=== PATIENT | female | born 2000 | race Caucasian/White ===

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

== ENCOUNTER 2022-12-29 11:38 | Outpatient (CLI) | payer OTHER ==
[2022-12-29 12:30] VITALS: BP 125/61; PULSE 77; RESP 16; TEMP 97.5
--- NOTE | 2023-01-13 10:21 | P.MSEPDOC ---
Presenting Problems - Arrival Data Date of Arrival on Unit: 12/29/22 Time of Arrival on Unit: 11:35 Mode of Transport: Ambulatory - Complaint OB-Reason for Admission/Chief Complaint: Acute Nausea/Vomiting, Dizziness Comment: pt states that she was dizzy and had n+v as a result. Medical History - Information : 3 Para: 2 Term: 2 : 0 Abortions: Spontaneous or Elective: 0 Number of Living Children: 2 - Gestational Age Gestational Age by RAJAN (wks/days): 24 Weeks and 1 Days Review of Systems - Review of Systems Constitutional: No problems Breast: No problems ENT: No problems Cardiovascular: No problems Respiratory: No problems Gastrointestinal: No problems Genitourinary: No problems Musculoskeletal: No problems Neurological: No problems Skin: No problems Vital Signs - Temperature Temperature: 97.5 F Temperature Source: Oral - Pulse Pulse Oximetery Pulse Rate: 77 Pulse Assessment Method: Pulse Oximetry - Respirations Respiratory Rate: 16 Oxygen Delivery Method: Room Air O2 Sat by Pulse Oximetry: 100 - Blood Pressure Right Arm Blood Pressure: 125/61 Blood Pressure Mean: 82 Blood Pressure Source: Automatic Cuff Medical Screen Scoring - Assessment - Baby A Baseline FHR: 150 Physician Notification - Physician Notified Physician Notified Date: 12/29/22 Physician Notified Time: 12:05 Physician: Eboni Wong Order Received: Yes (d/c home) Maternal Triage Index - Maternal Triage Index Presenting for scheduled procedure w/no complaint: No - Stat/Priority 1 Stat Priority 1: No - Urgent/Priority 2 Urgent Priority 2: No - Prompt/Priority 3 Prompt Priority 3: No - Non-Urgent/Priority 4 Non-Urgent Priority 4: Yes Criteria Met for Priority 4: pt complaints of dizziness and n+v Disposition - Disposition OB Disposition: Discharge to home Discharge Date: 12/29/22 Discharge Time: 12:16 I agree with the RN Medical Screening Exam: Yes Case reviewed; plan agreed upon as documented in EMR&OBIX.: Yes Diagnosis: DIZZINESS AND GIDDINESS
== END 2022-12-29 12:16 ==
LOC: FBPOP 11:38
PROVIDERS: ATTEND Obstetrics & Gynecology
DX: O21.9 Vomiting of pregnancy, unspecified (principal); Z3A.24 24 weeks gestation of pregnancy
CPT/HCPCS: 99213

== ENCOUNTER 2023-03-04 14:49 | Outpatient (CLI) | payer OTHER ==
[2023-03-04 16:00] LABS: Appearance,Urine Clear (Clear); Bilirubin,Urine Negative (Negative); Blood,Urine Negative (Negative); Color,Urine Yellow; Glucose,Urine (UA) Negative (Negative); Ketones,Urine Negative (Negative); Leukocyte Esterase,Urine Large (Negative); Mucus,Urine Rare /hpf; Nitrite,Urine Negative (Negative); PH, Urine 7.5 (5.0-8.0); Protein,Urine Trace (Negative); RBC,Urine 4 /hpf (0-5); Specific Gravity,Urine 1.014 (1.001-1.035); Squamous Epithelial Cell,Urine 6 /hpf (0-4); Urobilinogen,Urine <2.0 mg/dL (<2.0); WBC,Urine 11 /hpf (0-5)
[2023-03-04 18:03] VITALS: BP 115/56; PULSE 97; RESP 16; TEMP 98
--- NOTE | 2023-03-10 12:04 | P.MSEPDOC ---
Presenting Problems - Arrival Data Date of Arrival on Unit: 03/04/23 Time of Arrival on Unit: 14:49 Mode of Transport: Ambulatory - Complaint OB-Reason for Admission/Chief Complaint: Possible Onset of Labor Comment: Patient presents with increased vaginal pressure since yesterday evening, Patient denies contractions, leaking of fluid or intercourse in the last 24 hours. States that she does notice and increase in urinary frequency with the pressure pain. Medical History - Information : 3 Para: 2 Term: 2 : 0 Abortions: Spontaneous or Elective: 0 Number of Living Children: 2 - Gestational Age Gestational Age by RAJAN (wks/days): 33 Weeks and 3 Days Review of Systems - Review of Systems Constitutional: No problems Breast: No problems ENT: No problems Cardiovascular: No problems Respiratory: No problems Gastrointestinal: No problems Genitourinary: No problems Musculoskeletal: No problems Neurological: No problems Skin: No problems Vital Signs - Temperature Temperature: 98.0 F Temperature Source: Temporal Artery Scan - Pulse Pulse Oximetery Pulse Rate: 97 Pulse Assessment Method: Pulse Oximetry - Respirations Respiratory Rate: 16 Oxygen Delivery Method: Room Air - Blood Pressure Sitting Blood Pressure: 115/56 Blood Pressure Mean: 75 Blood Pressure Source: Automatic Cuff Medical Screen Scoring - Cervical Exam Dilation (cm): 1 Station: -2 Membranes: Intact - Uterine Contractions Intensity: Mild Resting: Soft to palpation - Assessment - Baby A Baseline FHR: 140 Heart Rate - NICHD Category: Category I (Normal) NST: Reactive Physician Notification - Physician Notified Physician Notified Date: 03/04/23 Physician Notified Time: 15:11 Physician: Eboni Wong New Order Received: Yes - Notification Comment Comment: Orders given to give patient juice to drink, Collect an FFN and then check cervix and send a UA. 1738 FFN results negative, reported UA results to physician. Physician orders urine culture and discharges patient home with instructions. Patient to keep regularly scheduled appt. Maternal Triage Index - Urgent/Priority 2 Urgent Priority 2: Yes Provider Notified: Eboni Wong Provider Notified Time: 15:11 Criteria Met for Priority 2: 33 3/7 Patient presents with increased vaginal pressure and has a history of labor. Disposition - Disposition OB Disposition: Discharge to home, Written follow up instructions reviewed Discharge Date: 03/04/23 Discharge Time: 17:55 I agree with the RN Medical Screening Exam: Yes Case reviewed; plan agreed upon as documented in EMR&OBIX.: Yes Diagnosis: FALSE LABOR BEFORE 37 COMPLETED WEEKS OF GEST, THIRD TRI
== END 2023-03-04 17:55 | disposition home or self-care (01) ==
LOC: FBPOP 14:49
PROVIDERS: ATTEND Obstetrics & Gynecology
DX: O47.03 False labor before 37 completed weeks of gestation, third trimester (principal); Z3A.33 33 weeks gestation of pregnancy
CPT/HCPCS: 59025; 82731; 81001; 87086; G0463; 99213

== ENCOUNTER 2023-03-10 23:53 | Outpatient (CLI) | payer OTHER ==
[2023-03-11 00:38] VITALS: BP 124/59; PULSE 92; RESP 14; TEMP 97.5
--- NOTE | 2023-03-11 09:36 | P.MSEPDOC ---
Presenting Problems - Arrival Data Date of Arrival on Unit: 03/10/23 Time of Arrival on Unit: 23:53 Mode of Transport: Ambulatory - Complaint OB-Reason for Admission/Chief Complaint: Possible Onset of Labor Comment: UC's q7-10min x1 hour Medical History - Information : 3 Para: 2 Term: 1 : 1 Abortions: Spontaneous or Elective: 0 Number of Living Children: 2 - Gestational Age Gestational Age by RAJAN (wks/days): 34 Weeks and 3 Days - History Complications: Prior Review of Systems - Review of Systems Constitutional: No problems Breast: No problems ENT: No problems Cardiovascular: No problems Respiratory: No problems Gastrointestinal: No problems Genitourinary: No problems Musculoskeletal: No problems Neurological: No problems Skin: No problems Vital Signs - Temperature Temperature: 97.5 F Temperature Source: Temporal Artery Scan - Pulse Right Pulse Oximetery Pulse Rate: 92 Pulse Assessment Method: Pulse Oximetry - Respirations Respiratory Rate: 14 Oxygen Delivery Method: Room Air O2 Sat by Pulse Oximetry: 97 - Blood Pressure Right Arm Blood Pressure: 124/59 Blood Pressure Mean: 80 Blood Pressure Source: Automatic Cuff Medical Screen Scoring - Cervical Exam Dilation (cm): 3 Effacement (%): 60 Station: -2 Membranes: Intact - Uterine Contractions Frequency From (mins): 3 Frequency To (mins): 8 Duration From (seconds): 50 Duration To (seconds): 90 Intensity: Mild Resting: Soft to palpation - Assessment - Baby A Baseline FHR: 140 Heart Rate - NICHD Category: Category I (Normal) NST: Reactive Physician Notification - Physician Notified Physician Notified Date: 03/11/23 Physician Notified Time: 00:25 Physician: Eboni Wong New Order Received: Yes - Notification Comment Comment: Dr. Wong notified of pt's arrival to triage with c/o UC's q7-10min for about. an hour. RN reported on maternal and status including pt hx of deliveries,. comfort level and UC pattern. Orders to orally hydrate pt and monitor for 1 hour, if pt. is feeling better at that time she can D/C home, if not then RN to recheck SVE, start an. IV and contact physician. POC discussed with pt, who verbalized agreement. Maternal Triage Index - Maternal Triage Index Presenting for scheduled procedure w/no complaint: No - Stat/Priority 1 Stat Priority 1: No - Urgent/Priority 2 Urgent Priority 2: No - Prompt/Priority 3 Prompt Priority 3: Yes Criteria Met for Priority 3: Pt is a with RAJAN [birth year] here at 34.3 weeks of gestation with c/o. abdominal tightening/cramping q7-10min for about the last hour, she rates the pain 6/10. on a 0-10 scale during the UC. Pt denies complications with the , but does. report 2 previous births at 35 and 37 weeks of gestation. POC discussed with pt, who. verbalized understanding and agreement. - Non-Urgent/Priority 4 Non-Urgent Priority 4: No - Scheduled/Requesting Priority 5 Scheduled/Requesting Priority 5: No Disposition - Disposition OB Disposition: Triage Discharge Date: 03/11/23 Discharge Time: 01:30 I agree with the RN Medical Screening Exam: Yes Case reviewed; plan agreed upon as documented in EMR&OBIX.: Yes Diagnosis: FALSE LABOR BEFORE 37 COMPLETED WEEKS OF GEST, THIRD TRI
== END 2023-03-11 01:30 | disposition home or self-care (01) ==
LOC: FBPOP 23:53
PROVIDERS: ATTEND Obstetrics & Gynecology
DX: O47.03 False labor before 37 completed weeks of gestation, third trimester (principal); Z3A.34 34 weeks gestation of pregnancy
CPT/HCPCS: 59025; G0463; 99213

== ENCOUNTER 2023-03-16 16:15 | Outpatient (CLI) | payer OTHER ==
[2023-03-16 18:17] VITALS: BP 114/64; PULSE 91; RESP 16; TEMP 97.9
--- NOTE | 2023-03-17 08:39 | P.MSEPDOC ---
Presenting Problems - Arrival Data Date of Arrival on Unit: 03/16/23 Time of Arrival on Unit: 16:15 Mode of Transport: Ambulatory - Complaint OB-Reason for Admission/Chief Complaint: Possible Onset of Labor, Rule Out SROM Comment: cx x3hrs, possible ROM Medical History - Information : 3 Para: 2 Term: 1 : 1 Abortions: Spontaneous or Elective: 0 Number of Living Children: 2 - Gestational Age Gestational Age by RAJAN (wks/days): 35 Weeks and 1 Days - History Complications: Prior Review of Systems - Review of Systems Constitutional: No problems Breast: No problems ENT: No problems Cardiovascular: No problems Respiratory: No problems Gastrointestinal: No problems Genitourinary: No problems Musculoskeletal: No problems Neurological: No problems Skin: No problems Vital Signs - Temperature Temperature: 97.9 F Temperature Source: Temporal Artery Scan - Pulse Pulse Oximetery Pulse Rate: 91 Pulse Assessment Method: Pulse Oximetry - Respirations Respiratory Rate: 16 Oxygen Delivery Method: Room Air O2 Sat by Pulse Oximetry: 97 - Blood Pressure Right Arm Blood Pressure: 114/64 Blood Pressure Mean: 80 Blood Pressure Source: Automatic Cuff Medical Screen Scoring - Cervical Exam Dilation (cm): 4.5 Effacement (%): 70 Station: -2 Membranes: Intact - Uterine Contractions Frequency From (mins): 2 Frequency To (mins): 6 Duration From (seconds): 40 Duration To (seconds): 70 Intensity: Mild Resting: Soft to palpation - Assessment - Baby A Baseline FHR: 140 Heart Rate - NICHD Category: Category I (Normal) NST: Reactive Physician Notification - Physician Notified Physician Notified Date: 03/16/23 Physician Notified Time: 16:30 Physician: Akash Sosa New Order Received: Yes - Notification Comment Comment: Dr. Sosa on unit, tracing reviewed, report given on contractions x3hrs,. possible ROM at 1500, so far amnisure is negative and SVE is 4/70/-2. Orders to watch. for 1 hour and recheck cervix, if the same and amnisure remains negative, pt can be. discharged home. Maternal Triage Index - Maternal Triage Index Presenting for scheduled procedure w/no complaint: No - Stat/Priority 1 Stat Priority 1: No - Urgent/Priority 2 Urgent Priority 2: No - Prompt/Priority 3 Prompt Priority 3: Yes Criteria Met for Priority 3: cx q3-5mins x3hrs, possible ROM Disposition - Disposition OB Disposition: Discharge to home Discharge Date: 03/16/23 Discharge Time: 17:42 I agree with the RN Medical Screening Exam: Yes Case reviewed; plan agreed upon as documented in EMR&OBIX.: Yes Diagnosis: FALSE LABOR BEFORE 37 COMPLETED WEEKS OF GEST, THIRD TRI
== END 2023-03-16 17:42 | disposition home or self-care (01) ==
LOC: FBPOP 16:15
PROVIDERS: ATTEND Obstetrics & Gynecology
DX: O47.03 False labor before 37 completed weeks of gestation, third trimester (principal); Z3A.35 35 weeks gestation of pregnancy
CPT/HCPCS: 59025; 84112; G0463; 99213

== ENCOUNTER 2023-12-30 23:16 | Emergency (ER) | payer OTHER ==
[2023-12-30 23:41] VITALS: BP 111/60; PULSE 116; RESP 18; TEMP 99.1
== END 2023-12-30 23:35 | disposition left against medical advice (07) ==
LOC: EC 23:16
DX: Z53.21 Procedure and treatment not carried out due to patient leaving prior to being seen by health care provider (principal); R11.2 Nausea with vomiting, unspecified
CPT/HCPCS: 87636; 99499

== ENCOUNTER 2024-05-18 19:34 | Emergency (ER) | payer OTHER ==
--- NOTE | 2024-05-18 20:07 | ED ---
Female Urogenital HPI - General Stated complaint: 9 Weeks preg,Vag bleeding Time Seen by Provider: 05/18/24 19:49 Source: patient, RN notes reviewed - History of Present Illness Initial comments: 23-year-old female G4, presents emergency department approximately 9 weeks gestation with lower abdominal cramping and vaginal spotting that began at 1800 this evening. Denies passage of clots. Has not had a ultrasound for this . States that last menstrual cycle was 03/23/24. Denies fevers, chills, urinary or bowel habit changes. Patient has attempted to make appoint with OB and was informed she will be contacted this week to schedule an appointment. - Related Data Previous Rx's Medication Instructions Recorded Ibuprofen [Motrin] 600 mg PO Q6HR PRN #30 tab 03/31/23 Allergies Allergy/AdvReac Type Severity Reaction Status Date / Time No Known Allergies Allergy Verified 05/18/24 20:06 Review of Systems ROS Statement: Those systems with pertinent positive or pertinent negative responses have been documented in the HPI. ROS Other: All systems not noted in ROS Statement are negative. Past Medical History Past Medical History: No Reported History Additional Past Medical History / Comment(s): 2 previous vaginal deliveries. History of Any Multi-Drug Resistant Organisms: None Reported Past Surgical History: No Surgical Hx Reported Past Anesthesia/Blood Transfusion Reactions: No Reported Reaction Past Psychological History: Anxiety, Bipolar, Depression Smoking Status: Former smoker Past Alcohol Use History: None Reported Past Drug Use History: Marijuana - Past Family History Mother Family Medical History: Cancer, Myocardial Infarction ([place]), Rheumatoid Arthritis ([place]), Thyroid Disorder Additional Family Medical History / Comment(s): cervical cancer Father Family Medical History: Myocardial Infarction ([place]) General Exam - General Exam Comments Initial Comments: Visual Physical Exam Vital signs reviewed General: Well-appearing, nontoxic, no acute distress. Head: Normocephalic, atraumatic Eyes: PERRLA, EOMI ENT: Airway patent Chest: Nonlabored breathing Skin: No visual rash, normal skin tone Neuro: Alert and oriented 3 Musculoskeletal: No gross abnormalities General appearance: alert, in no apparent distress Head exam: Present: atraumatic, normocephalic, normal inspection Respiratory exam: Present: normal lung sounds bilaterally. Absent: respiratory distress, wheezes, rales, rhonchi, stridor Cardiovascular Exam: Present: regular rate, normal rhythm, normal heart sounds. Absent: systolic murmur, diastolic murmur, rubs, gallop, clicks GI/Abdominal exam: Present: soft, tenderness (suprapubic), normal bowel sounds. Absent: distended, guarding, rebound, rigid Extremities exam: Present: normal inspection, full ROM, normal capillary refill. Absent: tenderness, pedal edema, joint swelling, calf tenderness Back exam: Present: normal inspection Skin exam: Present: warm, dry, intact, normal color. Absent: rash Course Vital Signs 05/18/24 20:06 Temperature 98.7 F Pulse Rate 74 Respiratory 16 Rate Blood Pressure 109/65 O2 Sat by Pulse 98 Oximetry Medical Decision Making - Medical Decision Making Was pt. sent in by a medical professional or institution ([facility], [employer], urgent care, hospital, or residential...) When possible be specific @ -No Did you speak to anyone other than the patient for history (EMS, parent, family, police, friend...)? What history was obtained from this source @ -No Did you review nursing and triage notes (agree or disagree)? Why? @ -I reviewed and agree with nursing and triage notes Were old charts reviewed (outside hosp., previous admission, EMS record, old EKG, old radiological studies, urgent care reports/EKG's, residential records)? Report findings @ -No old charts were reviewed Differential Diagnosis (chest pain, altered mental status, abdominal pain women, abdominal pain men, vaginal bleeding, weakness, fever, dyspnea, syncope, headache, dizziness, GI bleed, back pain, seizure, CVA, palpatations, mental health, musculoskeletal)? @ -Differential Vaginal Bleeding: Spontaneous , threatened , molar , ectopic , bloody show, incompetent cervix, abruptioplacenta, placenta previa, uterine rupture, dysfunctional uterine bleeding, hemorrhage, uterine fibroids, this is not meant to be an all-inclusive list. EKG interpreted by me (3pts min.). @ -None X-rays interpreted by me (1pt min.). @ -None done CT interpreted by me (1pt min.). @ -None done U/S interpreted by me (1pt. min.). @ -Transabdominal ultrasound reveals a single live intrauterine with a calculated age of 8 weeks 0 days, heart rate 155. What testing was considered but not performed or refused? (CT, X-rays, U/S, labs)? Why? @ -None What meds were considered but not given or refused? Why? @ -She was offered pain medication but she declined at this time. Did you discuss the management of the patient with other professionals (professionals i.e. , PA, [employer] SCI[employer] TEACHER, lab, RT, psych nurse, social media analyst, plisse machine operator helper, teacher, custom protection officer, business case analyst)? Give summary @ -No Was smoking cessation discussed for >3mins.? @ -No Was critical care preformed (if so, how long)? @ -No Were there social determinants of health that impacted care today? How? (Homelessness, low income, unemployed, alcoholism, drug addiction, transportation, low edu. Level, literacy, decrease access to med. care, retirement, rehab)? @ -No Was there de-escalation of care discussed even if they declined (Discuss DNR or withdrawal of care, Hospice)? DNR status @ -No What co-morbidities impacted this encounter? (DM, HTN, Smoking, COPD, CAD, Cancer, CVA, ARF, Chemo, Hep., AIDS, mental health diagnosis, sleep apnea, morbid obesity)? @ -None Was patient admitted / discharged? Hospital course, mention meds given and route, prescriptions, significant lab abnormalities, going to OR and other pertinent info. @ -Discharge. 23-year-old female with vaginal bleeding during . Patient's vitals are stable upon arrival she is no signs of acute distress. Patient has mild suprapubic tenderness to palpation. With concern for potential ectopic or threatened with no recorded ultrasound patient is sent for ultrasound and labs ordered. CBC reveals mild leukocytosis of 12, CMP hyponatremia of 134, hCG of [id number], analysis negative for signs of infection, contamination including squamous epithelial cells. Ultrasound reveals a single live intrauterine with a gestational age of 8 weeks 0 days. Recommend that patient follows up with her OB as instructed for further evaluation. All questions answered at bedside and strict return parameters discussed with the patient she is verbalized understanding. Case discussed with Dr. Moncada. Undiagnosed new problem with uncertain prognosis? @ -No Drug Therapy requiring intensive monitoring for toxicity (Heparin, Nitro, Insulin, Cardizem)? @ -No Were any procedures done? @ -No Diagnosis/symptom? @ -vaginal bleeding during /threatened , intrauterine Acute, or Chronic, or Acute on Chronic? @ -Acute Uncomplicated (without systemic symptoms) or Complicated (systemic symptoms)? @ -Uncomplicated Side effects of treatment? @ -No Exacerbation, Progression, or Severe Exacerbation? @ -No Poses a threat to life or bodily function? How? (Chest pain, [place], [place], pneumonia, PE, COPD, DKA, ARF, appy, cholecystitis, CVA, Diverticulitis, Homicidal, Suicidal, threat to staff... and all critical care pts) @ -No - Lab Data Result diagrams: 05/18/24 21:06 05/18/24 21:06 Lab Results 05/18/24 05/18/24 05/18/24 Range/Units 20:52 21:06 21:06 WBC 12.0 H (3.8-10.6) k/uL RBC 4.65 (3.80-5.40) m/uL Hgb 13.9 (11.4-16.0) gm/dL Hct 41.1 (34.0-46.0) % MCV 88.2 (80.0-100.0) fL MCH 29.9 (25.0-35.0) pg MCHC 33.9 (31.0-37.0) g/dL RDW 13.0 (11.5-15.5) % Plt Count 265 (150-450) k/uL MPV 8.1 Neutrophils % 77 % Lymphocytes % 19 % Monocytes % 2 % Eosinophils % 1 % Basophils % 0 % Neutrophils # 9.2 H (1.3-7.7) k/uL Lymphocytes # 2.2 (1.0-4.8) k/uL Monocytes # 0.3 (0-1.0) k/uL Eosinophils # 0.1 (0-0.7) k/uL Basophils # 0.0 (0-0.2) k/uL Sodium (137-145) mmol/L Potassium (3.5-5.1) mmol/L Chloride (98-107) mmol/L Carbon Dioxide (22-30) mmol/L Anion Gap mmol/L BUN (7-17) mg/dL Creatinine (0.52-1.04) mg/dL Est GFR (CKD-EPI)AfAm (>60 ml/min/1.73 sqM) Est GFR (CKD-EPI)NonAf (>60 ml/min/1.73 sqM) Glucose (74-99) mg/dL Calcium (8.4-10.2) mg/dL Total Bilirubin (0.2-1.3) mg/dL AST (14-36) U/L ALT (4-34) U/L Alkaline Phosphatase (38-126) U/L Total Protein (6.3-8.2) g/dL Albumin (3.5-5.0) g/dL HCG, Quant mIU/mL Urine Color Yellow Urine Appearance Cloudy H (Clear) Urine pH 5.5 (5.0-8.0) Ur Specific [place] 1.034 (1.001-1.035) Urine Protein Trace H (Negative) Urine Glucose (UA) Negative (Negative) Urine Ketones Trace H (Negative) Urine Blood Negative (Negative) Urine Nitrite Negative (Negative) Urine Bilirubin Negative (Negative) Urine Urobilinogen <2.0 (<2.0) mg/dL Ur Leukocyte Esterase Moderate H (Negative) Urine RBC 2 (0-5) /hpf Urine WBC 7 H (0-5) /hpf Ur Squamous Epith Cells 5 H (0-4) /hpf Calcium Oxalate Crystal Many H (None) /hpf Urine Mucus Many H (None) /hpf Blood Type O Positive Blood Type Recheck O Pos Bld Type Recheck Status No 05/18/24 Range/Units 21:06 WBC (3.8-10.6) k/uL RBC (3.80-5.40) m/uL Hgb (11.4-16.0) gm/dL Hct (34.0-46.0) % MCV (80.0-100.0) fL MCH (25.0-35.0) pg MCHC (31.0-37.0) g/dL RDW (11.5-15.5) % Plt Count (150-450) k/uL MPV Neutrophils % % Lymphocytes % % Monocytes % % Eosinophils % % Basophils % % Neutrophils # (1.3-7.7) k/uL Lymphocytes # (1.0-4.8) k/uL Monocytes # (0-1.0) k/uL Eosinophils # (0-0.7) k/uL Basophils # (0-0.2) k/uL Sodium 134 L (137-145) mmol/L Potassium 4.0 (3.5-5.1) mmol/L Chloride 104 (98-107) mmol/L Carbon Dioxide 22 (22-30) mmol/L Anion Gap 8 mmol/L BUN 9 (7-17) mg/dL Creatinine 0.79 (0.52-1.04) mg/dL Est GFR (CKD-EPI)AfAm >90 (>60 ml/min/1.73 sqM) Est GFR (CKD-EPI)NonAf >90 (>60 ml/min/1.73 sqM) Glucose 121 H (74-99) mg/dL Calcium 9.4 (8.4-10.2) mg/dL Total Bilirubin 1.1 (0.2-1.3) mg/dL AST 20 (14-36) U/L ALT 10 (4-34) U/L Alkaline Phosphatase 52 (38-126) U/L Total Protein 6.9 (6.3-8.2) g/dL Albumin 4.3 (3.5-5.0) g/dL HCG, Quant 793408.0 mIU/mL Urine Color Urine Appearance (Clear) Urine pH (5.0-8.0) Ur Specific [place] (1.001-1.035) Urine Protein (Negative) Urine Glucose (UA) (Negative) Urine Ketones (Negative) Urine Blood (Negative) Urine Nitrite (Negative) Urine Bilirubin (Negative) Urine Urobilinogen (<2.0) mg/dL Ur Leukocyte Esterase (Negative) Urine RBC (0-5) /hpf Urine WBC (0-5) /hpf Ur Squamous Epith Cells (0-4) /hpf Calcium Oxalate Crystal (None) /hpf Urine Mucus (None) /hpf Blood Type Blood Type Recheck Bld Type Recheck Status Disposition Clinical Impression: Bleeding in early , Intrauterine Disposition: HOME SELF-CARE Condition: Good Instructions (If sedation given, give patient instructions): Threatened Misca rriage (ED) Additional Instructions: Return to the emergency department for any new or worsening symptoms. Recommend that you follow-up with OB for further evaluation. Is patient prescribed a controlled substance at d/c from ED?: No Referrals: None,Stated [Primary Care Provider] - 1-2 days Time of Disposition: 23:04
[2024-05-18 20:08] VITALS: RESP 16
--- NOTE | 2024-05-18 21:03 | US ---
EXAMINATION TYPE: Transabdominal DATE OF EXAM: 05/18/2024 8:39 PM COMPARISON: NONE CLINICAL INDICATION: Female, 23 years old with history of est. 9 weeks, cramping, spotting; Patient u nsure of exact dates. Cramping and spotting EXAM PERFORMED: Transabdominal (TA) EXAM MEASUREMENTS: GESTATIONAL AGE / DATING Physician Established: Not yet established Dates by LMP: (7 weeks/2 days) EDC: 01/02/2025 Dates by First Scan: No previous this is first scan Dates by Current Scan for: (8 weeks/0 days) EDC: 12/29/2023 MATERNAL ANATOMY Uterus: 9.7 x 5.9 x 6.4cm. WNL as best seen Right Ovary: 2.1 x 2.2 x 2.1cm. WNL as best seen Left Ovary: 1.9 x 1.5 x 1.3cm. WNL as best seen Post CDS / Adnexa: WNL Presence of free fluid: No Presence of corpus luteal cyst: Not visualized Presence of subchorionic bleed: No GESTATION / SURVEY CRL: 1.638 weeks/0 days) Yolk Sac (normal less than 6mm): 3mm Heart Rate: 155 bpm Rhythm: Normal IUP: Viable IUP Date of LMP: 03/28/2024 Beta HcG (if available): Not available at this time IMPRESSION: 1. Single live intrauterine with calculated ultrasound age of 8 weeks 0 days by crown rump length with an estimated date of delivery of 12/29/2023
[2024-05-18 21:13] LABS: Basophils % (A) 0 %; Eosinophils # (A) 0.1 k/uL (0-0.7); Eosinophils % (A) 1 %; HCT 41.1 % (34.0-46.0); HGB 13.9 gm/dL (11.4-16.0); Lymphocytes # (A) 2.2 k/uL (1.0-4.8); Lymphocytes % (A) 19 %; MCH 29.9 pg (25.0-35.0); MCHC 33.9 g/dL (31.0-37.0); MCV 88.2 fL (80.0-100.0); Mean Platelet Volume 8.1; Monocytes # (A) 0.3 k/uL (0-1.0); Monocytes % (A) 2 %; Neutrophils # (A) 9.2 k/uL (1.3-7.7); Neutrophils % (A) 77 %; Platelet Count 265 k/uL (150-450); RBC 4.65 m/uL (3.80-5.40)
[2024-05-18 21:24] LABS: Appearance,Urine Cloudy (Clear); Bilirubin,Urine Negative (Negative); Blood,Urine Negative (Negative); Calcium Oxalate Crystals,Urine Many /hpf; Color,Urine Yellow; Glucose,Urine (UA) Negative (Negative); Ketones,Urine Trace (Negative); Leukocyte Esterase,Urine Moderate (Negative); Mucus,Urine Many /hpf; Nitrite,Urine Negative (Negative); PH, Urine 5.5 (5.0-8.0); Protein,Urine Trace (Negative); RBC,Urine 2 /hpf (0-5); Specific Gravity,Urine 1.034 (1.001-1.035); Squamous Epithelial Cell,Urine 5 /hpf (0-4); Urobilinogen,Urine <2.0 mg/dL (<2.0); WBC,Urine 7 /hpf (0-5)
[2024-05-18 21:31] LABS: ALT 10 U/L (4-34); AST 20 U/L (14-36); African American GFR (CKD) >90 (>60 ml/min/1.73 sqM); Albumin 4.3 g/dL (3.5-5.0); Alkaline Phosphatase 52 U/L (38-126); Anion Gap 8 mmol/L; Blood Urea Nitrogen 9 mg/dL (7-17); Calcium 9.4 mg/dL (8.4-10.2); Carbon Dioxide 22 mmol/L (22-30); Chloride 104 mmol/L (98-107); Glucose 121 mg/dL (74-99); Non-African American GFR(CKD) >90 (>60 ml/min/1.73 sqM); Sodium 134 mmol/L (137-145); Total Bilirubin 1.1 mg/dL (0.2-1.3); Total Protein 6.9 g/dL (6.3-8.2)
[2024-05-18 23:15] VITALS: BP 107/64; PULSE 83; TEMP 97.7
== END 2024-05-18 23:16 | disposition home or self-care (01) ==
LOC: EC 19:34
CPT/HCPCS: 36415; 76801; 80053; 81001; 84702; 85025; 86900; 86901; 99284

== ENCOUNTER 2024-07-26 22:10 | Outpatient (CLI) | payer OTHER ==
[2024-07-27 00:20] VITALS: BP 121/64; PULSE 90; RESP 16; TEMP 96.6
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
== END 2024-07-26 23:00 | disposition home or self-care (01) ==
LOC: FBPOP 22:10
PROVIDERS: ATTEND Obstetrics & Gynecology
DX: O9A.212 Injury, poisoning and certain other consequences of external causes complicating pregnancy, second trimester (principal); Z3A.19 19 weeks gestation of pregnancy
CPT/HCPCS: 99213

== ENCOUNTER 2024-12-05 18:36 | Inpatient (IN) | payer OTHER ==
[2024-12-05] MEDS ORDERED: miSOPROStoL 200 MCG TAB PO PRN (19:08)
[2024-12-05] MEDS ORDERED: OXYTOCIN 10 UNIT/ML 1 ML VIAL IM PRN (19:08)
[2024-12-05] MEDS ORDERED: TRANEXAMIC 1,000 MG/100ML-NACL 1,000 MG in EMPTY BAG 1 BAG IV PRN (19:08)
[2024-12-05] MEDS ORDERED: miSOPROStoL 200 MCG TAB RECTAL PRN (19:08)
[2024-12-05] MEDS ORDERED: TERBUTALINE 1 MG/ML VIAL SQ PRN (19:08)
[2024-12-05] MEDS ORDERED: CARBOPROST TROMETHAMINE 250 MCG/ML 1 ML AMP IM PRN (19:08)
[2024-12-05] MEDS ORDERED: METHYLERGONOVINE 0.2 MG/ML 1 ML AMP IM PRN (19:08)
[2024-12-05] MEDS ORDERED: OXYTOCIN 30 UNITS/500 ML NS 30 UNIT in SALINE 1 500ML.BAG IV SCH ×2 (19:15→23:15)
[2024-12-05] MEDS: LACTATED RINGERS 1,000 ML IV SCH (19:22)
[2024-12-05] MEDS: PENICILLIN G POTASSIUM 5,000,000 UNIT in SODIUM CHLORIDE 0.9% 100 ML IVPB STA (19:39)
[2024-12-05 19:52] LABS: Basophils % (A) 0 %; Eosinophils % (A) 0 %; HCT 36.1 % (34.0-46.0); HGB 12.3 gm/dL (11.4-16.0); Lymphocytes # (A) 1.9 k/uL (1.0-4.8); Lymphocytes % (A) 13 %; MCV 88.3 fL (80.0-100.0); Monocytes # (A) 0.5 k/uL (0-1.0); Monocytes % (A) 3 %; Neutrophils # (A) 11.5 k/uL (1.3-7.7); Neutrophils % (A) 81 %; Platelet Count 232 k/uL (150-450); RBC 4.09 m/uL (3.80-5.40); RDW 13.3 % (11.5-15.5); WBC 14.2 k/uL (3.8-10.6)
--- NOTE | 2024-12-05 20:29 | P.HPOB ---
History of Present Illness H&P Date: 12/05/24 Chief Complaint: 36-6/7 weeks, active labor Patient is a 24-year-old 4 para 1-2-0-3 admitted at 36-6/7 weeks as established by last menstrual period and confirmed by second trimester ultrasound. She is admitted in active labor with all signs reassuring, category 1 heart rate tracing. Her has been uncomplicated though she carries a history of 2 previous deliveries between 35 and 37 weeks. On delivery, all signs are reassuring as noted above. Group B strep status has been done but it has not yet been resulted. Obstetrical history: 3 para 1-2-0-3 with 3 vaginal deliveries, 1 term and 2 between 35 and 37 weeks. Current statistics are listed in history of present illness. EDC of 01/04/2025 was established by last menstrual period and confirmed by second trimester ultrasound. Laboratory workup demonstrates a blood type positive with a negative antibody screen. Rubella status is immune. The remainder of the laboratory workup was within normal limits. 1 hour Glucola is not reported. Group B strep status is pending. Gynecologic history: Unremarkable with no history of any infections to include STDs. Review of Systems Review of systems is confined to history of present illness. Past Medical History Past Medical History: No Reported History Additional Past Medical History / Comment(s): 3 previous vaginal deliveries. History of Any Multi-Drug Resistant Organisms: None Reported Past Surgical History: No Surgical Hx Reported Past Anesthesia/Blood Transfusion Reactions: No Reported Reaction Past Psychological History: Anxiety, Bipolar, Depression Smoking Status: Never smoker Past Alcohol Use History: None Reported Past Drug Use History: Marijuana Additional Drug Use History / Comment(s): MJ use in early - Past Family History Mother Family Medical History: Cancer, Myocardial Infarction ([place]), Rheumatoid Arthritis ([place]), Thyroid Disorder Additional Family Medical History / Comment(s): cervical cancer Father Family Medical History: Myocardial Infarction ([place]) Medications and Allergies Allergies Allergy/AdvReac Type Severity Reaction Status Date / Time No Known Allergies Allergy Verified 05/18/24 20:06 Exam Vital Signs Temp Pulse Resp BP Pulse Ox 12/05/24 18:57 97.3 F L 111 H 18 128/64 97 Intake and Output 12/05/24 12/05/24 12/05/24 06:59 14:59 22:59 Other: Weight 81.647 kg In general, this is a well-developed, well-nourished white female in no acute distress. She is somewhat uncomfortable as she is in active labor. Her heart has a regular rhythm and rate without murmur. Her lungs are clear to ausculta tion bilaterally in all ceballos. Her abdomen is gravid, nondistended, has normal active bowel sounds, soft, nontender, and without any palpable masses aside from uterine fundus. Her extremities are without any cyanosis, clubbing, or edema and are nontender to palpation bilaterally. Digital cervical examination performed by the nursing staff most recently demonstrated her cervix to be 8 cm dilated, 70% effaced, with the vertex and presentation at -2 station. There is a bulging bag of water. Results Result Diagrams: 12/05/24 19:22 Abnormal Lab Results - Last 24 Hours (Table) 12/05/24 Range/Units 19:22 WBC 14.2 H (3.8-10.6) k/uL Neutrophils # 11.5 H (1.3-7.7) k/uL Assessment and Plan (1) Active labor Current Visit: No Status: Acute Code(s): O60.00 - LABOR WITHOUT DELIVERY, UNSPECIFIED TRIMESTER SNOMED Code(s): 5340970 Plan: Patient has been admitted for active management of labor. She has declined epidural analgesia. Antibiotic prophylaxis has been started but is unlikely to be infused prior to delivery. As a result, she will shortly undergo artificial rupture of membranes in order to affect delivery. She will continue to have close maternal and surveillance and expectant management will be practice d.
[2024-12-05] MEDS: CALCIUM CARBONATE 500 MG CHEWABLE PO PRN (21:06)
[2024-12-05] MEDS ORDERED: LANOLIN CREAM 1 GM TUBE TOPICAL PRN (23:06)
[2024-12-05] MEDS ORDERED: ZOLPIDEM 5 MG TAB PO PRN (23:06)
[2024-12-05] MEDS ORDERED: HYDROCORTISONE 2.5% RECTAL CREAM 30 GM TUBE RECTAL PRN (23:06)
[2024-12-05] MEDS ORDERED: BENZOCAINE/MENTHOL SPRAY 1 GM/SPRAY AEROSOL TOPICAL PRN (23:06)
[2024-12-05] MEDS ORDERED: diphenhydrAMINE 50 MG/ML 1 ML VIAL IVP PRN ×2 (23:06)
[2024-12-05] MEDS ORDERED: SIMETHICONE 80 MG CHEWABLE PO PRN (23:06)
[2024-12-05] MEDS ORDERED: diphenhydrAMINE 50 MG CAP PO PRN (23:06)
[2024-12-05] MEDS ORDERED: diphenhydrAMINE 25 MG CAP PO PRN (23:06)
--- NOTE | 2024-12-05 23:11 | P.PROBDLV ---
Vaginal Delivery Note - . Vaginal Delivery Note: Patient is a 24-year-old 4 para 1-2-0-3 admitted at 36-6/7 weeks by good dating parameters. She is admitted in active labor with all signs reassuring, category 1 heart rate tracing. Her has been uncomplicated aside from history of 2 previous deliveries between 35 and 37 weeks. Group B strep status has been done but is not reported yet. As a result, she had antibiotic prophylaxis started she is progressing fairly rapidly and underwent artificial rupture of membranes. She progressed to complete and then pushed over the course of approximately 3 contractions to a normal spontaneous vaginal delivery of a viable 6 pound 1.4 ounce baby boy with Apgars of 9 at 1 minute and 9 at 5 minutes delivered in the direct occiput anterior position. The placenta was delivered spontaneously, intact, and grossly normal with a grossly normal three-vessel cord inserted approximately 5 cm from the margin of the placental disc. There was a very small second-degree midline perineal laceration which appeared to be over the site of a previous laceration which was repaired with a single [id number] stitch of 3-0 chromic catgut without difficulty. Estimated blood loss for the case was 50 mL. There were no complications. All sponge, instrument, and needle counts were correct. Both mother and are resting comfortably in recovery.
[2024-12-05] MEDS: LIDOCAINE 0.5% (PF) 5 MG/ML (50 ML SDV) SQ PRN (23:22)
[2024-12-05] MEDS: KETOROLAC 15 MG/ML 1 ML VIAL IVP STA (23:22)
[2024-12-06] MEDS: ACETAMINOPHEN TAB 500 MG TAB PO PRN (05:17)
[2024-12-06] MEDS: PENICILLIN G POTASSIUM 2,500,000 UNIT in SODIUM CHLORIDE 0.9% 100 ML IVPB SCH (05:33)
[2024-12-06 07:25] LABS: Basophils % (A) 0 %; Eosinophils # (A) 0.1 k/uL (0-0.7); Eosinophils % (A) 0 %; HCT 33.4 % (34.0-46.0); HGB 10.9 gm/dL (11.4-16.0); Lymphocytes # (A) 2.5 k/uL (1.0-4.8); Lymphocytes % (A) 14 %; MCH 28.9 pg (25.0-35.0); MCHC 32.8 g/dL (31.0-37.0); MCV 88.2 fL (80.0-100.0); Mean Platelet Volume 8.4; Monocytes # (A) 0.7 k/uL (0-1.0); Monocytes % (A) 4 %; Neutrophils # (A) 13.8 k/uL (1.3-7.7); Neutrophils % (A) 79 %; Platelet Count 236 k/uL (150-450); RBC 3.78 m/uL (3.80-5.40); RDW 13.3 % (11.5-15.5); WBC 17.4 k/uL (3.8-10.6)
[2024-12-06] MEDS: IBUPROFEN 800 MG TAB PO PRN (09:43)
[2024-12-06] MEDS: SENNOSIDES-DOCUSATE SODIUM 1 EACH TAB PO SCH (09:44)
--- NOTE | 2024-12-06 11:43 | P.PNOBGVD ---
Subjective - Subjective Patient reports: Reports appetite normal, Reports voiding normally, Reports pain well controlled, Reports ambulating normally : doing well Objective - Latest Vital Signs Latest vital signs: Vital Signs Temp Pulse Resp BP Pulse Ox 12/06/24 09:57 97.3 F L 68 16 118/62 12/06/24 04:00 98.8 F 73 16 101/63 98 12/06/24 01:01 97.2 F L 76 16 123/72 12/06/24 00:46 70 16 117/64 12/06/24 00:31 77 16 118/64 12/06/24 00:16 83 16 119/65 12/06/24 00:01 58 L 16 119/65 12/05/24 23:46 74 16 118/64 12/05/24 23:31 97.2 F L 74 16 118/62 12/05/24 23:16 97.4 F L 71 16 143/91 12/05/24 23:01 97.2 F L 60 16 139/83 12/05/24 18:57 97.3 F L 111 H 18 128/64 97 Intake and Output 12/05/24 12/06/24 12/06/24 22:59 06:59 14:59 Intake Total 240 Output Total 122 Balance 118 Intake: Oral 240 Output: Output, Quantitative 122 Blood Loss Other: # Voids 1 1 Weight 81.647 kg - Exam Extremities: Present: normal Abdomen: Present: normal appearance, soft Uterus: Present: normal, firm (The uterine fundus is tonic and nontender around the umbilicus.) - Labs Labs: Abnormal Lab Results - Last 24 Hours (Table) 12/05/24 12/06/24 Range/Units 19:22 07:07 WBC 14.2 H 17.4 H (3.8-10.6) k/uL RBC 3.78 L (3.80-5.40) m/uL Hgb 10.9 L (11.4-16.0) gm/dL Hct 33.4 L (34.0-46.0) % Neutrophils # 11.5 H 13.8 H (1.3-7.7) k/uL Assessment and Plan (1) Active labor Current Visit: Yes Status: Acute Code(s): O60.00 - LABOR WITHOUT DELIVERY, UNSPECIFIED TRIMESTER SNOMED Code(s): 9571482 (2) Normal vaginal delivery Current Visit: Yes Status: Acute Code(s): O80 - ENCOUNTER FOR FULL-TERM UNCOMPLICATED DELIVERY SNOMED Code(s): 57867501 Plan: As the patient delivered just at 37 weeks and had unknown group B strep status and did not receive adequate prophylaxis prior to delivery, pediatrics has requested to observe the infant for at least 48 hours. As result, the patient will remain in the hospital and likely be discharged home tomorrow. Continue routine care.
--- NOTE | 2024-12-07 09:46 | P.DS ---
Providers Date of admission: 12/05/24 19:06 Expected date of discharge: 12/07/24 Attending physician: Eboni Wong Primary care physician: Stated None - Discharge Diagnosis(es) (1) Normal vaginal delivery Current Visit: Yes Status: Acute Hospital Course: Patient presented in active labor at 36 weeks and 6 days, delivered 37 weeks. Patient underwent a normal vaginal delivery. course has been uneventful. She denies nausea, vomiting, chest pain, shortness of breath or calf pain. Patient will be discharged home day #2 in stable condition to follow-up with me in 6 weeks. Plan - Discharge Summary New Discharge Prescriptions: New Ibuprofen [Motrin] 600 mg PO Q6HR PRN #30 tab PRN Reason: Mild Pain Or Fever >= 100.5 Discharge Medication List Ibuprofen [Motrin] 600 mg PO Q6HR PRN #30 tab 12/07/24 [Rx] Discharge Disposition: HOME SELF-CARE
[2024-12-07 12:24] VITALS: TEMP 98.2
[2024-12-07 16:35] VITALS: BP 133/81; PULSE 54; RESP 14
== END 2024-12-07 19:43 | disposition home or self-care (01) | DRG 560 ==
LOC: FBPOP 18:36 → 4FBP 19:06
PROVIDERS: ADMIT Obstetrics & Gynecology; ATTEND Obstetrics & Gynecology
PROC: 10907ZC Drainage of Amniotic Fluid, Therapeutic from Products of Conception, Via Natural or Artificial Opening (ICD-10-PCS; principal; 2024-12-05)
PROC: 10E0XZZ Delivery of Products of Conception, External Approach (ICD-10-PCS; principal; 2024-12-05)
PROC: 0KQM0ZZ Repair Perineum Muscle, Open Approach (ICD-10-PCS; principal; 2024-12-05)
DX: O60.14X0 Preterm labor third trimester with preterm delivery third trimester, not applicable or unspecified (principal); O70.1 Second degree perineal laceration during delivery; O80 Encounter for full-term uncomplicated delivery; Z3A.37 37 weeks gestation of pregnancy; Z37.0 Single live birth
CPT/HCPCS: 85025; 86850; 86900; 86901; 99213